=== PATIENT | male | born 1990 | race Caucasian/White ===

== ENCOUNTER 2020-06-10 19:15 | Emergency (ER) | payer OTHER, SELFPAY ==
[2020-06-10 19:30] VITALS: BP 136/72; PULSE 81; RESP 18; TEMP 36.5; O2SAT 98
--- NOTE | 2020-06-10 19:34 | ED.GENADULT ---
HPI - General Adult General Chief complaint: Skin/Abscess/Foreign Body Stated complaint: insect bite Time Seen by Provider: 06/10/20 19:34 Source: patient and RN notes reviewed Mode of arrival: ambulatory Limitations: no limitations History of Present Illness HPI narrative: 29-year-old male presents with complaints of insect bite to left lower calf causing him to use his EpiPen prior to arrival to express care. Jens says his aunt had to inject his EpiPen (felt shaky after injection and instructed to seek care if he had to use) into his LT thigh due to him feeling as if his throat was feeling scratchy after the bug bite and being allergic to wasp and bees (unsure what stung him). Denies swelling, redness, or discomfort. No pain. Denies rash. Denies lip swelling, tongue swelling, facial swelling, tongue swelling, facial swelling, cough, wheezing, racing heart, chest pain, or shortness of breath. Denies the course/duration of symptoms worsening. The patient reports he have not been diagnosed with COVID-19. The patient reports he is not waiting for the results of a COVID-19 lab test. The patient reports he do not have fever, chills, weakness, fatigue, myalgia, or facial swelling. The patient reports he do not have a new or worsening cough or shortness of breath. Denies chest pain. The patient reports he do not have any rhinorrhea, congestion, sore throat, nausea, vomiting, abdominal pain, and diarrhea. Tolerating po intake well. Denies recent traveling. Denies concerns for COVID-19 or exposures been home with limited outdoor exposure except for essential household needs and return home. At this time, patient is not suspected of having COVID-19. Some parts of this dictation were generated by voice recognition software and may contain typographical and/or grammatical inaccuracies. Related Data Home Medications Medication Instructions Recorded Confirmed bupropion HCl 150 mg PO DIRECTED 06/10/20 06/10/20 epinephrine 0.3 mg IM DIRECTED 06/10/20 06/10/20 naltrexone 50 mg PO DIRECTED 06/10/20 06/10/20 olanzapine 15 mg PO DIRECTED 06/10/20 06/10/20 Allergies Allergy/AdvReac Type Severity Reaction Status Date / Time BEE STINGS Allergy Uncoded 10/11/12 22:28 Review of Systems Review of Systems: Narrative: CONSTITUTIONAL: Denies fever, chills, sweats. EYES: Denies visual changes, redness, discharge. ENT: Denies rhinorrhea, congestion, sore throat, otalgia. CARDIOVASCULAR: Denies chest pain, palpitations, edema. RESPIRATORY: Denies dyspnea, wheezing, cough. GASTROINTESTINAL: Denies abdominal pain, nausea, vomiting, diarrhea. GENITOURINARY: Denies dysuria, hematuria, abnormal discharge. SKIN: Denies rash or itching. Complaints of insect bite to left lower calf causing him to use his EpiPen. MUSCULOSKELETAL: Denies acute back pain, joint pain, or myalgia. NEUROLOGIC: Denies numbness or focal weakness. PSYCHIATRIC: Denies anxiety or depression. All other systems reviewed are negative, except as documented in HPI and below. [facility] Past Medical History Medical History (Updated 06/11/20 @ 00:00 by Haresh Dadann) Anxiety Bipolar disorder Depression Surgical History Surgical History No significant past surgical history Family History Family History Father Unknown family medical history Mother Unknown family medical history Social History Social History Smoking packs per day: 1 Smoking cigarettes per day: 20.0 Years smoked: 15 Smoking pack-years: 15.00 Smoking status: Current every day smoker Tobacco type: cigarettes Alcohol intake: former Alcohol use details: Alcohol free for 3 years Last use: Drug-free for 3 years Living arrangements: with family Occupation/Education: unemployed Gender identity (if
[2020-06-10 20:00] VITALS: BP 124/76; PULSE 79; RESP 18; TEMP 36.8
== END 2020-06-10 20:03 | disposition home or self-care (01) ==
PROVIDERS: Emergency Provider Nurse Practitioner Family
DX: S80.862A Insect bite (nonvenomous), left lower leg, initial encounter (principal); W57.XXXA Bitten or stung by nonvenomous insect and other nonvenomous arthropods, initial encounter; F41.9 Anxiety disorder, unspecified; F31.9 Bipolar disorder, unspecified; F17.210 Nicotine dependence, cigarettes, uncomplicated
CPT/HCPCS: 99213; G0463

== ENCOUNTER 2021-07-25 11:47 | Emergency (ER) | payer OTHER, SELFPAY ==
[2021-07-25 11:53] VITALS: BP 133/82; PULSE 98; RESP 18; TEMP 36.6; O2SAT 99
--- NOTE | 2021-07-25 11:57 | ED.EYEPROB ---
HPI - Eye Problem General Chief complaint: Eye Problems Stated complaint: FB EYE Time Seen by Provider: 07/25/21 11:57 Source: patient Mode of arrival: ambulatory Limitations: no limitations History of Present Illness HPI Narrative: Patient is a 30-year-old male with a history of bipolar disorder, ADHD, autism, who presents for evaluation of right eye pain. Patient states that he was weed eating his lawn without any eye protection when he felt something hit his right eye. Patient reports immediate pain, eye tearing. He denies blurry vision. He denies any discharge from the eye. Patient is not up-to-date on his tetanus. Patient does not wear any contact lenses. No history of wearing corrective lenses either. Pain is currently sharp, burning in nature in the right eye. He denies other head trauma. No neck pain. Related Data Home Medications Medication Instructions Recorded Confirmed bupropion HCl 150 mg PO DIRECTED 06/10/20 06/10/20 epinephrine 0.3 mg IM DIRECTED 06/10/20 06/10/20 naltrexone 50 mg PO DIRECTED 06/10/20 06/10/20 olanzapine 15 mg PO DIRECTED 06/10/20 06/10/20 Allergies Allergy/AdvReac Type Severity Reaction Status Date / Time BEE STINGS Allergy Severe Anaphylaxis Uncoded 07/25/21 11:59 Review of Systems Review of Systems: CONSTITUTIONAL: Denies fever HEENT: Right eye tearing, right eye pain, left eye normal CARDIOVASCULAR: Denies chest pain RESPIRATORY: Denies cough or dyspnea. GASTROINTESTINAL: Denies abdominal pain SKIN: Denies rash MUSCULOSKELETAL: Denies back pain NEUROLOGIC: Denies headache PMFSH Past Medical History Medical History Anxiety Bipolar disorder Depression Surgical History Surgical History No significant past surgical history Family History Family History Father Unknown family medical history Mother Unknown family medical history Social History Social History Smoking packs per day: 1 Smoking cigarettes per day: 20.0 Years smoked: 15 Smoking pack-years: 15.00 Smoking status: Current every day smoker Tobacco type: cigarettes Alcohol intake: former Alcohol use details: Alcohol free for 3 years Last use: Drug-free for 3 years Gender identity (if verbalized by the patient): Male Exam Narrative: GENERAL: Awake, alert, conversant HEAD: Normocephalic, atraumatic. EYES: 2+ PERRLA and EOMI. Patient with conjunctival injection of the right eye. No foreign body identified. ENT: Nares clear, no rhinorrhea or epistaxis. Mucous membranes moist. NECK: Supple. CHEST: No respiratory distress, breathing even and non labored HEART: Regular rate, sinus rhythm ABDOMEN:Non distended, non tender EXTREMITIES: Normal range of motion. No edema. SKIN: Warm, dry, no rash. NEURO:No focal deficits. Alert and oriented x3 Course Vital Signs Vital signs: Vital Signs Temperature 36.6 C 07/25/21 11:53 Pulse Rate 98 07/25/21 11:53 Respiratory Rate 18 07/25/21 11:53 Blood Pressure 133/82 07/25/21 11:53 Pulse Oximetry 99 07/25/21 11:53 Temperature 36.6 C 07/25/21 11:53 Pulse Rate 98 07/25/21 11:53 Respiratory Rate 18 07/25/21 11:53 Blood Pressure 133/82 07/25/21 11:53 Pulse Oximetry 99 07/25/21 11:53 MDM - Eye Problem MDM Narrative Medical decision making narrative: Patient presented for evaluation of right eye pain. At the time of assessment, ABCs are intact and vital signs are stable. Pupils equal and reactive to light bilaterally, extraocular movements are intact. There is mild conjunctival injection of the right eye. Tetracaine and fluorescein was applied, there is no Rosas sign. No evidence of globe rupture. There is no foreign body identified. He does have a very large corneal abrasion to
[2021-07-25] MEDS: TETANUS,DIPHTHERIA,AC PERTUSSIS ADULT (0.5 ML) BOOSTRIX IM (12:36)
== END 2021-07-25 12:40 | disposition home or self-care (01) ==
PROVIDERS: Emergency Provider Emergency Medicine; PCP Internal Medicine
DX: S05.01XA Injury of conjunctiva and corneal abrasion without foreign body, right eye, initial encounter (principal); Z23 Encounter for immunization; F31.9 Bipolar disorder, unspecified; F90.9 Attention-deficit hyperactivity disorder, unspecified type; F84.0 Autistic disorder; F41.9 Anxiety disorder, unspecified; F17.210 Nicotine dependence, cigarettes, uncomplicated; W20.8XXA Other cause of strike by thrown, projected or falling object, initial encounter
CPT/HCPCS: 90471; 90715; 99283